=== PATIENT | female | born 1990 | race Hispanic/Latino ===

== ENCOUNTER 2024-05-27 09:06 | Inpatient (IN) | payer MEDICAID, OTHER ==
[2024-05-27 09:29] VITALS: BMI 34.0
[2024-05-27] MEDS ORDERED: hydrALAZINE 20 MG/ML VIAL SLOW IVP PRN ×2 (09:35→19:58)
[2024-05-27] MEDS ORDERED: Methylergonovine 0.2 MG/ML VIAL IM PRN (09:35)
[2024-05-27] MEDS ORDERED: Carboprost 250 MCG/ML AMP IM PRN (09:35)
[2024-05-27] MEDS ORDERED: Diphenoxylate HCl/Atropine Tablet PO PRN (09:35)
[2024-05-27] MEDS ORDERED: Ibuprofen 800 MG TAB PO PRN (09:35)
[2024-05-27] MEDS ORDERED: Tranexamic Acid 1,000 MG/10 ML VIAL IVP PRN (09:35)
[2024-05-27] MEDS ORDERED: Acetaminophen 500 MG TAB PO PRN (09:35)
[2024-05-27] MEDS ORDERED: Misoprostol 200 MCG TAB PR PRN (09:35)
[2024-05-27] MEDS ORDERED: Lidocaine 1% (PF) 30 ML VIAL SC PRN (09:35)
[2024-05-27] MEDS ORDERED: HYDROcodone/Acetaminophen 5/325 mg Tablet PO PRN ×2 (09:35→19:58)
[2024-05-27] MEDS ORDERED: fentaNYL 50 mcg/mL 1 mL Vial SLOW IVP PRN (09:35)
[2024-05-27] MEDS ORDERED: Ondansetron PF 4 MG/2 ML Vial IVP PRN ×3 (09:35→19:58)
[2024-05-27] MEDS ORDERED: Promethazine HCl 25 MG/ML VIAL IM PRN ×2 (09:35→11:42)
[2024-05-27] MEDS ORDERED: Oxytocin 30 units/NS 500 ML 500 ML IV SCH ×2 (09:45)
[2024-05-27] MEDS: Lactated Ringer's 1,000 ML IV SCH (10:04)
[2024-05-27] MEDS: Oxytocin 30 units/NS 500 ML 500 ML IV SCH (10:07)
[2024-05-27 10:09] LABS: Hematocrit 33.9 % (34.9-44.5); Hemoglobin 11.5 g/dL (12.0-15.5); Mean Corpuscular HGB CONC 33.9 g/dL (32.0-36.0); Mean Corpuscular Hemoglobin 28.7 pg (27.0-33.0); Mean Corpuscular Volume 84.5 fL (81.6-98.3); Mean Platelet Volume 12.6 fL (7.4-10.4); Platelet Count 187 10x3/uL (150-450); RBC Distribution Width 13.2 % (11.5-14.5); Red Blood Cell (RBC) Count 4.01 10x6/uL (3.90-5.03); White Blood Cell (WBC) Count 8.3 10x3/uL (3.5-10.5)
[2024-05-27 10:39] LABS: Syphilis Antibody Nonreactive (Nonreactive); Syphilis Antibody Index 0.04 S/CO (<1.00 Non-Reactive)
[2024-05-27 10:41] LABS: HBsAg Index 0.16 S/CO (0-0.99); Hep B Surf Ag - L&D Non-Reactive S/CO (NonReactive)
[2024-05-27] MEDS ORDERED: ePHEDrine Sulfate 50 MG/10 ML VIAL SLOW IVP PRN (11:42)
[2024-05-27] MEDS ORDERED: Naloxone HCl 0.4 mg/ml Vial IVP PRN ×2 (11:42)
[2024-05-27] MEDS ORDERED: diphenhydrAMINE 50 MG/ML VIAL IVP PRN (11:42)
[2024-05-27] MEDS ORDERED: Acetaminophen 325 MG TAB PO PRN (11:42)
[2024-05-27] MEDS ORDERED: Moisturizing Cream (Eucerin) 113 GM JAR TOP PRN (11:42)
[2024-05-27] MEDS ORDERED: Lactated Ringer's 500 ML IV PRN (11:42)
[2024-05-27] MEDS ORDERED: fentaNYL 2 mcg/Ropivacaine 0.2% Epidural 100 ML CADD EPIDURAL SCH (11:45)
[2024-05-27] MEDS ORDERED: Communication Order-Pharmacy FS SCH (11:45)
[2024-05-27] MEDS ORDERED: Bisacodyl 10 MG SUPP PR PRN (19:58)
[2024-05-27] MEDS ORDERED: Boostrix 0.5 ML (Tdap) VIAL (>/=7 yrs of age) IM ONE (19:58)
[2024-05-27] MEDS ORDERED: diphenhydrAMINE 25 MG CAP PO PRN (19:58)
[2024-05-27] MEDS ORDERED: Milk Of Magnesia 30 ML UDCUP PO PRN (19:58)
[2024-05-27] MEDS: Erythromycin Base 0.5% Oint 1 GM TUBE ONE (20:10)
[2024-05-27] MEDS: fentaNYL/Ropivacaine Epidural 100 ML ONE (20:10)
[2024-05-27] MEDS: Phytonadione Neonatal 1 MG/0.5 ML AMP ONE (20:10)
[2024-05-27 20:46] VITALS: BP 110/57; TEMP 97.8
[2024-05-27] MEDS: Docusate 100 MG CAP PO SCH (21:28)
[2024-05-27] MEDS: Ibuprofen 800 MG TAB PO SCH (21:28)
[2024-05-28] MEDS ORDERED: Ibuprofen 800 MG TAB ONE ×2 (05:11→13:11)
[2024-05-28] MEDS ORDERED: Ferrous Sulfate 325 MG TAB PO SCH (08:00)
[2024-05-28] MEDS ORDERED: Ferrous Sulfate 325 MG TAB ONE (08:11)
[2024-05-28] MEDS ORDERED: Docusate 100 MG CAP ONE (08:11)
[2024-05-28] MEDS ORDERED: HYDROcodone/Acetaminophen 5/325 mg Tablet ONE (08:11)
== END 2024-05-29 15:30 | disposition home or self-care (01) | DRG 807 ==
LOC: CSHLD 09:06 → CSHPED 19:47
PROVIDERS: ADMIT Family Medicine; ATTEND Family Medicine
PROC: 10E0XZZ Delivery of Products of Conception, External Approach (ICD-10-PCS; principal; 2024-05-27)
DX: O69.81X0 Labor and delivery complicated by cord around neck, without compression, not applicable or unspecified (principal); Z37.0 Single live birth; Z3A.39 39 weeks gestation of pregnancy; Z79.899 Other long term (current) drug therapy
CPT/HCPCS: 36415; 51702; 85027; 86780; 86850; 86900; 86901; 87340; 99285; J2590; J7120